=== PATIENT | male | born 1985 | race Caucasian/White ===

== ENCOUNTER 2017-07-27 05:56 | Day surgery (SDC) | payer BC ==
--- NOTE | 2017-07-08 07:39 | HP ---
DATE OF ADMISSION: 07/27/2017 ORTHOPEDIC OUTPATIENT ADMITTING HISTORY AND PHYSICAL FOR SURGERY HISTORY OF PRESENT ILLNESS: This is the first orthopedic outpatient admission for surgery for this 32-year- old male, who is being evaluated and scheduled for arthroscopic surgery of the left shoulder, for a severe AC joint arthritis, loose bone fragments, and rotator cuff impingement along with possible biceps tendonitis. The patient has gone through a long history of treatment with no improvement. Recent x-rays and MRI evaluation identified the cause of the recurrent pain that the patient was having, and is now being scheduled for arthroscopic surgery. ALLERGIES: No known drug allergies. PAST MEDICAL HISTORY: He has been a healthy 32-year-old male. CURRENT MEDICATIONS: Ibuprofen. Medically, the patient is healthy. PAST SURGICAL HISTORY: Negative except for patient did have wisdom teeth extraction under anesthesia. Notes no anesthesia problems. HEMATOLOGY STATUS: Bleeding history is negative. Blood clot history is negative. SOCIAL HISTORY: Tobacco use is negative. Alcohol use is negative. PHYSICAL EXAMINATION: GENERAL: Today reveals a well-developed, well-nourished 32-year-old male, in moderate distress. HEAD, EYES, EARS, NOSE, AND THROAT: Normocephalic. NECK: Supple. CHEST: Clear. COR: Regular rate. ABDOMEN: Soft. GENITOURINARY: Intact. EXTREMITIES: Examination of the left upper extremity reveals positive pain with palpation of the AC joint with positive deformity noted. He has positive pain in the anterior rotator cuff area. His [place] testing is positive for rotator cuff impingement. ASSESSMENT: Overall impression is left shoulder acromioclavicular joint degenerative arthritis with spur formation along with rotator cuff impingement and possible biceps tendonitis and tearing. MMODAL /[id number]
[2017-07-27] MEDS ORDERED: Ropivacaine 0.5% 5 MG/ML 30 ML SDV ONE (06:24)
[2017-07-27] MEDS ORDERED: EPINEPHrine 1 MG/ML SDV ONE (06:24)
[2017-07-27] MEDS ORDERED: fentaNYL 250 MCG/5 ML SDV ONE (06:34)
[2017-07-27] MEDS ORDERED: Rocuronium 50 MG/5 ML Vial ONE (06:34)
[2017-07-27] MEDS ORDERED: Lidocaine 1% 4 ML ONE (06:34)
[2017-07-27] MEDS ORDERED: Ondansetron 4 MG/2 ML SDV ONE (06:34)
[2017-07-27] MEDS ORDERED: Propofol 200 MG/20 ML SDV ONE (06:34)
[2017-07-27] MEDS ORDERED: Midazolam 1 MG/ML 2 ML SDV ONE (06:34)
[2017-07-27] MEDS ORDERED: ceFAZolin 1 GM Vial ONE (06:37)
--- NOTE | 2017-07-27 06:49 | PCM.PREANE ---
Preanesthetic Assessment - Procedure Proposed Procedure: left shoulder arthroscopy - Anesthesia/Transfusion/Family Hx Anesthesia History: Prior Anesthesia Without Reaction Family History of Anesthesia Reaction: No Transfusion History: No Prior Transfusion(s) - Review of Systems General: No Symptoms Pulmonary: No Symptoms Cardiovascular: No Symptoms Gastrointestinal: No Symptoms Neurological: No Symptoms Other: Reports: None - Physical Assessment NPO Status Date: 07/26/17 NPO Status Time: 20:00 O2 Sat by Pulse Oximetry: 100 Respiratory Rate: 16 Vital Signs: Last Vital Signs Temp 98.3 F 07/27/17 06:15 Pulse 56 L 07/27/17 06:15 Resp 16 07/27/17 06:15 BP 130/83 07/27/17 06:15 Pulse Ox 100 07/27/17 06:15 Height: 5 ft 10 in Weight: 81.647 kg ASA Class: 2 Mental Status: Alert & Oriented x3 Airway Class: Mallampati = 1 Dentition: Reports: Normal Dentition Thyro-Mental Finger Breadths: 3 Mouth Opening Finger Breadths: 3 ROM/Head Extension: Full Lungs: Clear to Auscultation, Normal Respiratory Effort Cardiovascular: Regular Rate, Regular Rhythm - Lab Values: 07/19/17 Hgb 15.2 Plt 276 Lytes WNL Cr 1.1 BUN 13 MRSA neg - Allergies Allergies/Adverse Reactions: Allergies Allergy/AdvReac Type Severity Reaction Status Date / Time No Known Allergies Allergy Verified 07/26/17 14:53 - Blood Blood Available: No - Acknowledgements Anesthesia Type Planned: General Anesthesia Pt an Appropriate Candidate for the Planned Anesthesia: Yes Alternatives and Risks of Anesthesia Discussed w Pt/Guardian: Yes Pt/Guardian Understands and Agrees with Anesthesia Plan: Yes PreAnesthesia Questionnaire HEENT History: Reports: None, Sinusitis Cardiovascular History: Reports: None Respiratory History: Reports: None Gastrointestinal History: Reports: None Genitourinary History: Reports: None 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 Musculoskeletal History: Reports: Fracture Other Musculoskeletal History: nose fracture, finger fracture, left foot fracture, left shoulder fracture, ac join bone spurs/arthritis, biceps tendinitis, carpal tunnel syndrome, left cubital tunnel syndrome, left shoulder pain, left shoulder rotator cuff impingment, AC joint serpartion, tendinitis of flexor tendon of right hand Neurological History: Reports: Migraines Psychiatric History: Reports: None Endocrine/Metabolic History: Reports: None Hematologic History: Reports: None Immunologic History: Reports: None Oncologic (Cancer) History: Reports: None Dermatologic History: Reports: None - Past Surgical History Head Surgeries/Procedures: Reports: None HEENT Surgical History: Reports: Oral Surgery Cardiovascular Surgical History: Reports: None Respiratory Surgical History: Reports: None GI Surgical History: Reports: None Female Surgical History: Reports: None Male Surgical History: Reports: None Endocrine Surgical History: Reports: None Neurological Surgical History: Reports: None Musculoskeletal Surgical History: Reports: None Oncologic Surgical History: Reports: None Dermatological Surgical History: Reports: None - SUBSTANCE USE Smoking Status *Q: Former Smoker (quit 2 months ago) Tobacco Use Within Last Twelve Months: Cigarettes Second Hand Smoke Exposure: Yes Days Per Week of Alcohol Use: 0 Recreational Drug Use History: Yes Recreational Drug Type: Reports: Marijuana/Hashish - HOME MEDS Home Medications: Home Meds . [No Known Home Meds] 03/01/16 [History] - CURRENT (IN HOUSE) MEDS Current Meds: Current Medications Lactated Ringer's (Ringers, Lactated) 1,000 mls @ 125 mls/hr IV ASDIRECTED PARISA Stop: 07/27/17 23:00 Last Admin: 07/27/17 06:25 Dose: 125 mls/hr Lidocaine/Sodium Bicarbonate (Buffered Lidocaine 1% In Ns 8.4%) 0.25 ml .XX ONETIME PRN PRN Reason: Prior to IV Start Stop: 07/27/17 18:00 Last Admin: 07/27/17 06:25 Dose: 0.25 ml Sodium Chloride (Saline Flush) 10 ml FLUSH ASDIRECTED PRN PRN Reason: Keep Vein Open Stop: 07/27/17 18:00 Discontinued Medications Cefazolin Sodium (Ancef) Confirm Administered Dose 2 gm .ROUTE .STK-MED ONE Stop: 07/27/17 06:38 Epinephrine HCl (Adrenalin 1:1000) Confirm Administered Dose 1 mg .ROUTE .STK- MED ONE Stop: 07/27/17 06:25 Fentanyl (Sublimaze) Confirm Administered Dose 250 mcg .ROUTE .STK-MED ONE Stop: 07/27/17 06:35 Lidocaine HCl (Xylocaine-Mpf 1%) Confirm Administered Dose 4 mls @ as directed .ROUTE .STK-MED ONE Stop: 07/27/17 06:35 Midazolam HCl (Versed 1 Mg/Ml) Confirm Administered Dose 2 mg .ROUTE .STK-MED ONE Stop: 07/27/17 06:35 Ondansetron HCl (Zofran) Confirm Administered Dose 4 mg .ROUTE .STK-MED ONE Stop: 07/27/17 06:35 Propofol (Diprivan 20 Ml) Confirm Administered Dose 200 mg .ROUTE .STK-MED ONE Stop: 07/27/17 06:35 Rocuronium Equality (Zemuron) Confirm Administered Dose 50 mg .ROUTE .STK-MED ONE Stop: 07/27/17 06:35 Ropivacaine (Naropin 0.5%) Confirm Administered Dose 30 ml .ROUTE .STK-MED ONE Stop: 07/27/17 06:25
[2017-07-27] MEDS ORDERED: Lidocaine 1%/Sod Bicarbonate in NS 8.4% 1 ML Syringe PRN (07:00)
[2017-07-27] MEDS ORDERED: Lactated Ringers 1,000 ML IV SCH (07:00)
[2017-07-27] MEDS ORDERED: Sodium Chloride 0.9% 10 ML Syringe FLUSH PRN (07:00)
[2017-07-27] MEDS ORDERED: Bupivacaine 0.5%/EPINEPHrine 1:200,000 50 ML MDV ONE (07:12)
[2017-07-27] MEDS ORDERED: EPINEPHrine 1 MG/ML 30 ML MDV ONE (07:12)
[2017-07-27] MEDS ORDERED: Acetaminophen/oxyCODONE 325-5 MG Tab PO PRN (07:39)
[2017-07-27] MEDS ORDERED: Ondansetron 4 MG/2 ML SDV IVPUSH PRN ×2 (07:39→08:16)
[2017-07-27] MEDS ORDERED: Cyclobenzaprine 10 MG Tab PO PRN (07:39)
[2017-07-27] MEDS ORDERED: Ketorolac 30 MG/ML SDV IVPUSH PRN (07:39)
[2017-07-27] MEDS ORDERED: HYDROmorphone 0.5 MG/0.5 ML Syringe IVPUSH PRN ×2 (07:39→08:16)
[2017-07-27] MEDS ORDERED: Lactated Ringers 1,000 ML ONE (08:04)
[2017-07-27] MEDS ORDERED: Meperidine PF 50 MG/ML Syringe IVPUSH PRN (08:16)
[2017-07-27] MEDS ORDERED: fentaNYL 100 MCG/2 ML SDV IVPUSH PRN (08:16)
[2017-07-27] MEDS ORDERED: Iodine/Sodium Iodide 2% Tincture 30 ML Bottle ONE (08:42)
[2017-07-27] MEDS ORDERED: Morphine 15 MG Tab.ER PO ONE ×2 (09:00→11:45)
[2017-07-27] MEDS ORDERED: ePHEDrine 50 MG/ML SDV ONE (09:24)
--- NOTE | 2017-07-27 10:54 | PCM.POSTAN ---
POST ANESTHESIA ASSESSMENT - MENTAL STATUS Mental Status: Alert, Oriented - VITAL SIGNS Pulse Rate: 85 SaO2: 98 Resp Rate: 12 Blood Pressure: 147/84 Temperature: 97.9 F - RESPIRATORY Respiratory Status: Respiratory Rate WNL, Airway Patent, O2 Saturation Stable, Supplemental Oxygen - CARDIOVASCULAR CV Status: Pulse Rate WNL, Blood Pressure Stable - GASTROINTESTINAL GI Status: No Symptoms - PAIN Pain Score: 0 (throat is sore) - POST OP HYDRATION Hydration Status: Adequate & Stable
--- NOTE | 2017-07-27 11:43 | PCM.SN ---
- Free Text/Narrative Note: 07/26/17 [id number] Time out performed. Requested to place left interscale block with ultrasound guidance and nerve stimulator for post op pain control per Dr. Escobedo and patient. Preop diagnosis left shoulder rotator cuff impingement and arthritis. Procedure is left shoulder arthrosocpy with rotator cuff decompression and biceps tendonesis and debridement. Informed consent obtained. Monitors and O2 placed at 2 l per n/c. Versed 2 mg and Fentanyl 100 mcg given IV total. Patient awake and talking during procedure. Left neck and clavicle area prepped with chlorprep. Sterile gloves, hat and mask worn. US probe with sterile sleeve placed midclavicular with ID of brachial plexus and subclavian artery. Brachial plexus followed cephalad to level of cricoid. Lidocaine 1% local anesthetic injected prior to block placement. 22 g 2 inch stimplex needle advanced with US guidance to brachial plexus. Positive forearm response at .3mA with nerve stimulator. Ceased with saline injection.Ropivacaine 0.5% with epi 1:200,000 injected in increments of 5 ml with negative aspiration before each injection to a total of 30 ml. Good spread of local anesthetic seen on US. Patient tolerated procedure well. Vitals stable with no complaints. Post vitals 125/76 100% 16 80- See nurses notes
--- NOTE | 2017-07-27 12:41 | PCM48HPAN ---
Post Anesthesia Note - EVALUATION WITHIN 48HRS OF ANESTHETIC Vital Signs in Normal Range: Yes Patient Participated in Evaluation: Yes Respiratory Function Stable: Yes Airway Patent: Yes Cardiovascular Function Stable: Yes Hydration Status Stable: Yes Pain Control Satisfactory: Yes Nausea and Vomiting Control Satisfactory: Yes Mental Status Recovered: Yes (denies pain)
[2017-07-27 13:16] VITALS: BP 125/80
--- NOTE | 2017-07-27 14:23 | OR ---
DATE OF OPERATION: 07/27/2017 SURGEON: Óscar Escobedo MD PREOPERATIVE DIAGNOSIS: 1. Left shoulder glenoid labral tear with AC joint degenerative disease, loose bone fragment, AC joint. 2. Partial tear of rotator cuff. 3. Biceps tendon tearing. POSTOPERATIVE DIAGNOSIS: 1. Left shoulder glenoid labral tear with AC joint degenerative disease, loose bone fragment, AC joint. 2. Partial tear of rotator cuff. 3. Biceps tendon tearing. ANESTHESIA: General. OPERATION PERFORMED: 1. Arthroscopic left shoulder debridement and excision of torn glenoid labrum and fibrous adhesions. 2. Arthroscopic debridement of rotator cuff attachment, greater tuberosity. 3. Mini-open biceps tenodesis of left shoulder. ESTIMATED BLOOD LOSS: 150 mL. DESCRIPTION OF PROCEDURE: The patient was taken to the operative room in a supine position. He was placed under a general anesthesia and then placed in a sitting position for operation on the left shoulder. After the patient was positioned, the left shoulder was prepped and draped by standard technique, and the operation then proceeded with arthroscopic entry into the shoulder joint through the posterior anatomical portal soft spot area. With the arthroscope within the joint, a Wissinger sonido was then used to develop the anterior portal and then the operation proceeded with inspection of the joint. There was partial tearing of the subscapularis near the anterior insertion area, but was minimal. There were significant fibrous adhesions and scarring to the anterior portion of the joint extending to the biceps tendon and also there was significant degenerative tearing of the glenoid labrum with fibrous adhesions within the joint. This was all resected out until a nice stable remaining glenoid labrum remained. The biceps tendon was frayed and it was opted to go with a biceps tenodesis. The tendon was then released from the glenoid rim and a marking suture was placed through the biceps to hold it in place. Once that was completed, and the joint was debrided, the rotator cuff tear area was inspected. An 18-gauge needle was brought through that area. There was firmness with the 18-gauge needle going through it and palpation found just partial tearing. A light debridement was carried out. Once that was completed, the operation proceeded to the subacromial space. The arthroscope was then introduced in the subacromial space from the posterior portal area. A lateral portal was developed using an 18-gauge needle and once that portal was developed, the operation proceeded with debridement and bursectomy of the left shoulder, which was then carried out. After the bursectomy, the operation then proceeded with identification of the acromion, which had a curved anterior hook to it. A partial acromionectomy was carried out to decompress the anterior portion of the shoulder joint, and the AC joint was evaluated. There was a bone fragment that was loose in the joint area. After it was debrided smooth, there was also wear of the joint from a previous injury. Operation then proceeded with removal of the small bone fragment and then an AC joint decompression was carried out. Once that was completed, bleeding was controlled with electrocautery. The area was lightly debrided. Once it was satisfied that the decompression was complete and the rotator cuff was just showing a partial tear, the operation then proceeded to a mini-open procedure for a biceps tenodesis. An anterior incision was placed off the tip of the acromion extending for about 3 cm, penetrating through the skin and subcutaneous tissues. The deltoid was then opened and split to gain access to the groove for the biceps tendon and also the anchor point for the rotator cuff and the greater tuberosity. Inspection of the greater tuberosity and palpation of the rotator cuff from the outside found the attachment area to be nice and firm and no open tears were noted. The operation proceeded with identification of the bicipital groove. The released biceps tendon was identified and then the operation proceeded with the biceps tenodesis being placed with the biceps tendon being placed into the proximal humerus. After completion of the biceps tenodesis, the area was then thoroughly irrigated. Again, palpation of the rotator cuff was then carried out with the shoulder in different positions. Again, no full-thickness tears were noted, only just minimal softness at the attachment area, where the partial tear was. The palpation of the undersurface of the acromion found this nice and smooth with good room for movement of the shoulder. The operation then proceeded with final irrigation again and then the deltoid muscle split was then closed with #1 Vicryl, subcutaneous tissue with 2- 0 Vicryl skin, and skin with skin marcus. The patient tolerated this whole procedure well. He left the operating room in a stable condition to his room for recovery with an abduction sling. MMODAL /[id number]
== END 2017-07-27 13:10 | disposition home or self-care (01) ==
LOC: JD.SDS 05:56
PROVIDERS: ATTEND Specialist
DX: S43.492A Other sprain of left shoulder joint, initial encounter (principal); M75.112 Incomplete rotator cuff tear or rupture of left shoulder, not specified as traumatic; S46.212A Strain of muscle, fascia and tendon of other parts of biceps, left arm, initial encounter; M19.012 Primary osteoarthritis, left shoulder; M75.42 Impingement syndrome of left shoulder; G56.03 Carpal tunnel syndrome, bilateral upper limbs; G56.22 Lesion of ulnar nerve, left upper limb; Z98.818 Other dental procedure status; Z87.891 Personal history of nicotine dependence
CPT/HCPCS: 23929; 29823; 29826; A9270; J0171; J0690; J2250; J2405; J2795; J3010; J7120; 01630; 64415; C1713; J2704

== ENCOUNTER 2018-05-08 13:08 | Emergency (ER) | payer BC, OTHER ==
[2018-05-08 13:39] VITALS: BP 120/86
--- NOTE | 2018-05-08 14:14 | EDM.PDOC ---
ED HPI GENERAL MEDICAL PROBLEM - General Chief Complaint: Upper Extremity Injury/Pain Stated Complaint: LT ELBOW PAIN Time Seen by Provider: 05/08/18 13:56 Source of Information: Reports: Patient History Limitations: Reports: No Limitations - History of Present Illness INITIAL COMMENTS - FREE TEXT/NARRATIVE: Patient is a 33-year-old male presents ED complaining of left medial epicondyle elbow discomfort. States approximately 3 weeks ago has noticed pinpoint tenderness to the epicondyle. Unclear etiology of current complaint. Since then the pain has persisted. He has no decreased range of motion with flexion extension at the elbow. No increasing pain with internal and external rotation of his wrist. No sensory changes noted. 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 There's been no swelling, redness , bruising, or any other concerning symptoms. Patient did recently have shoulder surgery rotator cuff in 2017. Shoulder range of motion is improving. No other issues distal. He has no additional past medical history and currently taking no medications other than [id number] Aleve. He has been icing the affected area on intermittent basis. left elbow Pain Score (Numeric/FACES): 4 - Related Data Allergies Allergy/AdvReac Type Severity Reaction Status Date / Time No Known Allergies Allergy Verified 05/08/18 13:39 Home Meds: Home Meds . 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 Musculoskeletal History: Reports: Fracture Other Musculoskeletal History: nose fracture, finger fracture, left foot fracture, left shoulder fracture, ac join bone spurs/arthritis, biceps tendinitis, carpal tunnel syndrome, left cubital tunnel syndrome, left shoulder pain, left shoulder rotator cuff impingment, AC joint serpartion, tendinitis of flexor tendon of right hand Neurological History: Reports: Migraines Psychiatric History: Reports: None Endocrine/Metabolic History: Reports: None Hematologic History: Reports: None Immunologic History: Reports: None Oncologic (Cancer) History: Reports: None Dermatologic History: Reports: None - Past Surgical History Head Surgeries/Procedures: Reports: None HEENT Surgical History: Reports: Oral Surgery Cardiovascular Surgical History: Reports: None Respiratory Surgical History: Reports: None GI Surgical History: Reports: None Male Surgical History: Reports: None Endocrine Surgical History: Reports: None Neurological Surgical History: Reports: None Musculoskeletal Surgical History: Reports: None Other Musculoskeletal Surgeries/Procedures:: shoulder surgery July 2017 Oncologic Surgical History: Reports: None Dermatological Surgical History: Reports: None Social & Family History - Family History Family Medical History: Noncontributory Endocrine/Metabolic: Reports: Hyperthyroidism Oncologic: Reports: Breast - Tobacco Use Smoking Status *Q: Current Some Day Smoker Years of Tobacco use: 10 Packs/Tins Daily: 0.2 - Caffeine Use Caffeine Use: Reports: Soda - Recreational Drug Use Recreational Drug Use: No - Living Situation & Occupation Living situation: Reports: , with Family Occupation: Employed Review of Systems - Review of Systems Review Of Systems: ROS reveals no pertinent complaints other than HPI. ED EXAM, GENERAL - Physical Exam Exam: See Below Exam Limited By: No Limitations General Appearance: Alert, WD/WN, No Apparent Distress Ears: Hearing Grossly Normal Nose: Normal Inspection Throat/Mouth: Normal Voice, No Airway Compromise Neck: Normal Inspection, Supple, Non-Tender, Full Range of Motion Respiratory/Chest: No Respiratory Distress, Lungs Clear, Normal Breath Sounds, Chest Non-Tender Cardiovascular: Normal Peripheral Pulses, Regular Rate, Rhythm, No Murmur Peripheral Pulses: 2+: Radial (L) Extremities: Normal Inspection, Other (On examination the left elbow there is no increased swelling, redness, bruising, bony abnormalities. Patient has limited range of motion the left shoulder secondary to recent shoulder surgery. This occurred July 2017. He has no pain with flexion-extension/internal/ external rotation of the wrist and also flexion-extension of the elbow. He has pinpoint tenderness along the medial epicondyle. There is no pain again against resistance with her internal and external rotation. No sensory changes distally. No findings concerning for atrophy. Peripheral vascular intact.) Neurological: Alert, Oriented, CN II-XII Intact, Normal Cognition, No Motor/ Sensory Deficits Psychiatric: Normal Affect, Normal Mood Skin Exam: Warm, Dry, Intact, Normal Color, No Rash Course - Vital Signs Last Recorded V/S: Last Vital Signs Temp 98.5 F 05/08/18 13:33 Pulse 63 05/08/18 13:33 Resp 18 05/08/18 13:33 BP 120/86 05/08/18 13:33 Pulse Ox 100 05/08/18 13:33 - Orders/Labs/Meds Orders: Active Orders 24 hr Category Date Time Status Elbow Min 3V Lt [CR] Stat Exams 05/08/18 13:43 Taken - Re-Assessments/Exams Free Text/Narrative Re-Assessment/Exam: X-ray of the left elbow obtained with no acute bony abnormalities noted. Back patient may have hit his elbow on only causing increasing pain to the affected site. Pain is reproduced with palpation and/or resting it on the door in his vehicle while driving. He has been taking Aleve intermittently. I seen regularly. 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 No additional testing at this point. Symptomatically care including: Padding, icing, anti-inflammatories is treatment of choice. He will follow up with orthopedic surgeon of his choice in 7 to 10 days for reevaluation. The patient remained hemodynamically stable while under my care in the E.D. I discussed the concerning symptoms for which to returnto the E.D. with the patient/family. The patient/family verbalized understanding. All questions were answered. Departure - Departure Time of Disposition: 14:19 Disposition: Home, Self-Care 01 Condition: Good Clinical Impression: Elbow pain, left Contusion Qualifiers: Encounter type: initial encounter Contusion area: upper arm - Discharge Information Instructions: Joint Pain Referrals: Asim Self MD [Physician] - Forms: ED Department Discharge Additional Instructions: Utilize donut padding with jessika wrap to minimize contact to specific area. Ice the affected area 4 times daily 30 minutes in duration, do not apply directly on the skin. Take ibuprofen as needed for pain. Call and make an appt with orthopedic surgeon of your choice to be evaluated in 7 to 10 days. Please return to the E.D. if you develop any new or worsening symptoms. - My Orders Last 24 Hours: My Active Orders 05/08/18 13:43 Elbow Min 3V Lt [CR] Stat - Assessment/Plan Last 24 Hours: My Active Orders 05/08/18 13:43 Elbow Min 3V Lt [CR] Stat
--- NOTE | 2018-05-09 10:50 | CR ---
Left elbow: Four views of the left elbow were obtained. Comparison: No prior elbow exam. Joint spaces are preserved. No joint effusion is seen. No fracture or other bony abnormality is identified. Impression: 1. No abnormality is identified on left elbow study. Diagnostic code #1
== END 2018-05-08 14:36 | disposition home or self-care (01) ==
LOC: JD.ED 13:08
DX: S50.02XA Contusion of left elbow, initial encounter (principal); X50.3XXA Overexertion from repetitive movements, initial encounter; Y99.0 Civilian activity done for income or pay
CPT/HCPCS: 73080-26-LT; 73080-LT; 99283

== ENCOUNTER 2022-04-23 10:26 | Emergency (ER) | payer OTHER, BC ==
[2022-04-23] MEDS ORDERED: Ketorolac 15 MG/ML SDV IM ONE (11:08)
[2022-04-23] MEDS ORDERED: Ketorolac 30 MG/ML SDV ONE (11:24)
[2022-04-23] MEDS ORDERED: Ketorolac 30 MG/ML SDV IM ONE (11:28)
[2022-04-23 12:01] VITALS: BP 124/81; PULSE 62
== END 2022-04-23 11:58 | disposition home or self-care (01) ==
LOC: JD.ED 10:26
DX: S60.852A Superficial foreign body of left wrist, initial encounter (principal); I67.9 Cerebrovascular disease, unspecified; G46.3 Brain stem stroke syndrome; F17.210 Nicotine dependence, cigarettes, uncomplicated; X50.1XXA Overexertion from prolonged static or awkward postures, initial encounter
CPT/HCPCS: 73110; 96372; 99284; J1885

== ENCOUNTER 2022-10-07 05:35 | Emergency (ER) | payer BC, OTHER ==
[2022-10-07] MEDS ORDERED: Ondansetron 4 MG/2 ML SDV IVPUSH ONE (06:09)
[2022-10-07] MEDS ORDERED: Sodium Chloride 0.9% 1,000 ML IV ONE (06:10)
[2022-10-07] MEDS ORDERED: Ketorolac 15 MG/ML SDV IVPUSH ONE (06:10)
[2022-10-07] MEDS ORDERED: Sodium Chloride 0.9% 1,000 ML IV SCH (06:15)
[2022-10-07] MEDS ORDERED: HYDROmorphone 1 MG/ML Syringe IVPUSH STA (06:19)
[2022-10-07] MEDS ORDERED: cefTRIAXone 1 GM in Sodium Chloride 0.9% 100 ML IV ONE (08:03)
[2022-10-07 09:02] VITALS: BP 112/70; PULSE 57
== END 2022-10-07 09:00 | disposition home or self-care (01) ==
LOC: JD.ED 05:35
DX: N13.2 Hydronephrosis with renal and ureteral calculous obstruction (principal); R82.71 Bacteriuria; F17.210 Nicotine dependence, cigarettes, uncomplicated
CPT/HCPCS: 36415; 74176; 74176-26; 80053; 81001; 83690; 85007; 85027; 96361; 96365; 96375; 99284-25; J0696; J1170; J1885; J2405; J7030

== ENCOUNTER 2023-02-08 17:22 | Emergency (ER) | payer SELFPAY ==
[2023-02-08 17:36] VITALS: BP 127/77; PULSE 73
== END 2023-02-08 18:32 | disposition home or self-care (01) ==
LOC: JD.ED 17:22
DX: M79.674 Pain in right toe(s) (principal); F17.210 Nicotine dependence, cigarettes, uncomplicated
CPT/HCPCS: 73630-26-RT; 73630-RT; 99283